=== PATIENT | male | born 1940 | race Caucasian/White ===

== ENCOUNTER 2017-12-30 18:43 | Emergency (ER) | payer MEDICARE, OTHER ==
[~2017-12-30] VITALS: Ht 177.8 cm; Wt 67.3 kg
[2017-12-30 18:55] VITALS: TEMP 98.1
[2017-12-30 19:27] LABS: BASO # 0.1 (0.0-0.2); BASO % 0.5 % (0.0-2.0); EOS # 0.1 (0.0-0.7); EOS % 0.5 % (0-4.0); GRAN # 8.4 (1.4-6.5); GRAN % 78.9 % (42.2-75.2); HEMATOCRIT 37.8 % (42.0-52.0); LYMPH # 1.3 (1.2-3.4); LYMPH % 12.1 % (20.0-51.0); MEAN CELL VOLUME 87 fl (80.0-100.0); MEAN CORPUSCULAR HEMOGLOBIN 30 pg (27.0-31.0); MEAN CORPUSCULAR HGB CONC 34 g/dl (33.0-37.0); MEAN PLATELET VOLUME 10.7 fl (7.4-10.4); MONO # 0.8 (0.1-0.6); MONO % 7.8 % (1.7-9.3); PLATELET COUNT 154 K/mm3 (130-400); RED BLOOD COUNT 4.36 M/mm3 (4.20-5.60); REDCELL DISTRIBUTION WIDTH-CV 13.5 % (11.5-14.5)
[2017-12-30 19:38] LABS: ALANINE AMINOTRANSFERASE 48 U/L (21-72); ALBUMIN 3.7 gm/dL (3.5-5.0); ALKALINE PHOSPHATASE 76 U/L (50-136); ANION GAP 8 mmol/L (7-16); AST,SGOT 29 U/L (15-37); BILIRUBIN,TOTAL 1.5 mg/dL (0.0-1.0); BLOOD UREA NITROGEN 18 mg/dL (9-20); CALCIUM 8.8 mg/dL (8.4-10.2); CARBON DIOXIDE 26 mmol/L (22-30); CHLORIDE 101 mmol/L (98-107); CREATININE, serum 0.76 mg/dL (0.66-1.25); GLUCOSE 67 mg/dL (74-106); POTASSIUM 3.5 mmol/L (3.4-5.0); SODIUM 136 mmol/L (137-145); TOTAL PROTEIN 6.7 gm/dL (6.4-8.2)
[2017-12-30] MEDS ORDERED: LEVEMIR FLEX100 U/ML SQ (19:41)
[2017-12-30] MEDS ORDERED: GLUCOPHAGE500 MG/TAB PO (19:41)
[2017-12-30] MEDS ORDERED: FLOMAX 0.40.4 MG/CAP PO (19:42)
[2017-12-30] MEDS ORDERED: PLAVIX 75MG TAB75 MG PO (19:42)
[2017-12-30] MEDS ORDERED: SINEMET 25/101 UDTAB PO (19:42)
[2017-12-30] MEDS ORDERED: TOPROL XL 25MG25 MG PO (19:43)
[2017-12-30] MEDS ORDERED: PRINIVIL2.5 MG PO (19:43)
[2017-12-30] MEDS ORDERED: LIPITOR 40MG TA40 MG PO (19:44)
[2017-12-30] MEDS ORDERED: ASPIRIN 81M81 MG/TA2 PO (19:45)
[2017-12-30] MEDS ORDERED: SYNTHROID0.075 MG/T PO (19:45)
[2017-12-30] MEDS ORDERED: MAGNESIUM200 MG PO (19:46)
[2017-12-30] MEDS ORDERED: EPA FISH OIL1 SGL PO (19:46)
[2017-12-30] MEDS ORDERED: VITAMIN B122500 MCG SL (19:47)
[2017-12-30] MEDS ORDERED: VITAMIND3 5000 (19:47)
[2017-12-30] MEDS ORDERED: VITAMINC1000TA (19:47)
[2017-12-30 19:48] LABS: INR 1.1 (0.8-3.0); PROTHROMBIN TIME 13.1 SECONDS (9.7-12.8)
[2017-12-30 19:49] LABS: TROPONIN-I < 0.012 ng/mL (0.000-0.034)
[2017-12-30 20:49] LABS: COLLECTION METHOD CLEAN CATCH
[2017-12-30 21:00] LABS: PH 7 (5-8); SQUAMOUS EPITHELIAL None Seen /hpf; URINE APPEARANCE Clear; URINE BACTERIA None Seen /hpf; URINE BILIRUBIN Negative (NEGATIVE); URINE BLOOD Negative (NEGATIVE); URINE COLOR Yellow; URINE GLUCOSE Negative (NEGATIVE); URINE KETONE Negative (NEGATIVE); URINE LEUKOCYTE ESTERASE Negative (NEGATIVE); URINE NITRATE Negative (NEGATIVE); URINE PROTEIN(semi-quant) Negative (NEGATIVE); URINE UROBILINOGEN Negative (NEGATIVE)
[2017-12-30 22:44] VITALS: BP 103/74; PULSE 74
== END 2017-12-30 22:57 | disposition home or self-care (01) ==
LOC: COL.ER 18:43
PROVIDERS: Emergency Medicine
DX: R53.83 Other fatigue (principal); R53.81 Other malaise; E11.9 Type 2 diabetes mellitus without complications; E78.5 Hyperlipidemia, unspecified; Z86.73 Personal history of transient ischemic attack (TIA), and cerebral infarction without residual deficits; Z79.4 Long term (current) use of insulin; Z79.02 Long term (current) use of antithrombotics/antiplatelets; Z79.82 Long term (current) use of aspirin
CPT/HCPCS: J7030